=== PATIENT | male | born 1990 | race Two or more races ===

== ENCOUNTER 2024-06-25 05:26 | Emergency (ER) | payer MEDICAID, SELFPAY ==
[2024-06-25 05:27] VITALS: BMI 33.4
[2024-06-25 05:35] VITALS: BP 129/81; PULSE 89; RESP 16; TEMP 36.6; O2SAT 98
[2024-06-25] MEDS: FLUORESCEIN SOD 1 MG STRP RIGHT EYE (06:51)
[2024-06-25] MEDS: TETRACAINE PF OP SOL 0.5% 4 ML DRPETTE 1 DROP RIGHT EYE (06:51)
--- NOTE | 2024-06-25 07:07 | EDNOTE_ITS ---
<Statement entered by Sonia Verma MD - 06/26/24 14:30> As co-signing physician, I was present and available for consult prn. I concur with the plan and care as documented by the midlevel provider. ED Eye Problem RME/HPI General Chief complaint: Eye Problems Stated complaint: RT EYE PAIN Time Seen by Provider: 06/25/24 06:16 Arrival date/time: 06/25/24 05:26 34-year-old male presents to the Emergency Department today send he was doing some yard work yesterday and got some debris in his right eye patient reports since then has had ear irrigation and pain. Patient reports no disturbances in vision but reports the light bothers his eye as well as pain Limitations: no limitations Related Data Previous Rx's ?Medication ?Instructions ?Recorded ibuprofen 800 mg tablet 800 mg PO TID PRN pain #30 t abs 06/25/24 tobramycin 0.3 % eye drops 2 drp ophthalmic (eye) Q4H 5 days 06/25/24 #5 mL Allergies Allergy/AdvReac Type Severity Reaction Status Date / Time No Known Allergies Allergy Verified 06/25/24 05:30 Review of Systems Review of Systems Systems Reviewed: All systems reviewed, normal except as documented Constitutional Constitutional: Reports system reviewed and no additional complaints, except as documented, Denies fever(s) and Denies headache(s) Eyes Eyes: Reports system reviewed and no additional complaints, except as documented, Denies blurry vision, Denies change in vision, Reports eye discharge, Reports irritation, Denies loss of vision, Denies other visual disturbances, Reports eye pain and Reports photophobia ENT Ears, Nose, Mouth, and Throat: Reports system reviewed and no additional complaints, except as documented, Denies headache(s), Denies nasal congestion and Denies nasal discharge Cardiovascular Cardiovascular: Reports system reviewed and no additional complaints, except as documented, Denies chest pain and Denies dyspnea Respiratory Respiratory: Reports system reviewed and no additional complaints, except as documented, Denies chest congestion, Denies cough and Denies dyspnea Gastrointestinal Gastrointestinal: Reports system reviewed and no additional complaints, except as documented and Denies abdominal pain Integumentary/Breasts Skin/Breast: Reports system reviewed and no additional complaints, except as documented and Denies rash Neurologic Neurologic: Reports system reviewed and no additional complaints, except as documented, Reports as per HPI, Denies headache(s) and Denies loss of vision Past Medical History Social History SMOKING STATUS: Current some day smoker ED Exam General Limitations: Present no limitations General appearance: Present alert and in no apparent distress Head Head exam: Present atraumatic, normocephalic and normal inspection Eye Eye exam: Present PERRL, EOMI, conjunctival injection and other (No hyphema); Absent scleral icterus, nystagmus, miosis, periorbital swelling or periorbital tenderness ENT ENT exam: Present normal exam, normal oropharynx and mucous membranes moist Neck Neck exam: Present normal inspection, full ROM and trachea midline Chest Chest inspection: Present normal inspection and symmetric chest wall rise Respiratory Respiratory exam: Present normal lung sounds bilaterally Cardiovascular Cardiovascular exam: Present regular rate, normal rhythm and normal heart sounds Abdominal Exam Abdominal exam: Present soft and normal bowel sounds Extremities Exam Extremities exam: Present normal inspection and full ROM Back Exam Back exam: Present normal inspection and full ROM Neurological Exam Neurological exam: Present alert, oriented X3 and CN II-XII intact Psychiatric Psychiatric exam: Present normal affect and normal mood Skin Skin exam: Present warm, dry, intact and normal color Course Quality Measures none Orders Category Date Time Status ED Eye Irrigation ONCE Care 06/25/24 06:21 Active Perdomo Lamp to Bedside X1 Care 06/25/24 06:21 Active Fluorescein Sodium [[id number]] Med 06/25/24 06:21 Discontinued 1 mg RIGHT EYE X1 ONE TETRACAINE Op Gabrielle 0.5% [Pontocaine Op Gabrielle 0.5%] Med 06/25/24 06:21 Discontinued 1 drop RIGHT EYE X1 ONE Vital Signs Vital signs: Vital Signs Temperature 97.9 F 06/25/24 05:35 Pulse Rate 89 06/25/24 05:35 Respiratory Rate 16 06/25/24 05:35 Blood Pressure 129/81 06/25/24 05:35 Pulse Oximetry (%) 98 06/25/24 05:35 Oxygen Delivery Method Room Air 06/25/24 05:35 O2 saturation 98% room air within normal limits Procedures -ED Perdomo Lamp Exam Right eye: Flourescein uptake:: Yes Perdomo Lamp Findings: Corneal abrasion Eye MDM Narrative MDM Narrative:: 34-year-old male presents to the Emergency Department today send he was doing some yard work yesterday and got some debris in his right eye patient reports since then has had ear irrigation and pain. Patient reports no disturbances in vision but reports the light bothers his eye as well as pain On exam patient has conjunctival injection of the right eye no hyphema no periorbital cellulitis patient does have small chronic abrasion at the 3 o'clock position Perdomo lamp exam performed, I irrigated with 500 mL of normal saline using a Felton lens patient discharge home with antibiotics Patient instructed to follow-up with eye doctor today and for any disturbances of vision he must return immediately for further evaluation patient states understanding Patient data External records reviewed:: [facility] previous records Clinical information provided by:: patient Social determinants that could affect healthcare access:: none Patient has the following chronic illnesses:: None How is presenting disease/condition affected by chronic disease/condition?: no chronic disease Evaluation data The following diagnostics were reviewed and interpreted by me:: other (specify) Lab and/or radiology exams considered but not ordered:: Consider not ordered Interpretation Summary: N/A Medications / Prescriptions Medications or Prescriptions considered but not ordered:: Given Medication administrations:: Medication Administration History Discontinued Medications Fluorescein Sodium (Fluorescein Sod 1 Mg Strp) 1 mg RIGHT EYE X1 ONE Stop: 06/25/24 06:22 Last Admin: 06/25/24 06:51 Dose: 1 mg Documented By: JOSE GUADALUPE Tetracaine HCl (Tetracaine Pf Op Gabrielle 0.5% 4 Ml Drpette) 1 drop RIGHT EYE X1 ONE Stop: 06/25/24 06:22 Last Admin: 06/25/24 06:51 Dose: 1 drop Documented By: JOSE GUADALUPE Given Consultations Consultation(s) initiated? (list below): No Diagnosis Eye Problem Differential Diagnosis: corneal abrasion and corneal ulcer Most likely diagnosis given after review of the tests above:: Corneal abrasion Admission Indicated Admission indicated?: not indicated Admission Request Was there a request for admission?: No Disposition Plan Disposition Plan: Discharge Discharge Attestation Discharge Attestation: The patient and all family members were given an opportunity to ask questions and understood the discharge instructions. Discharge instructions specifically effects, indications for sooner follow up or return to the emergency department, and the expected course of current diagnosis. Patient condition: Stable Discharge Plan Plan Patient Disposition: HOME (Self Care) Disposition Comment: Stable Prescriptions/Referrals Prescriptions/Med Rec: New ibuprofen 800 mg tablet 800 mg PO TID PRN (Reason: pain) Qty: 30 0RF tobramycin 0.3 % drops 2 drp ophthalmic (eye) Q4H 5 Days Qty: 5 0RF Referrals: Wander Lim DO [Referring Provider] - 06/25/24 Problem List Clinical Impression: Corneal abrasion Patient/Caregiver Discharge Instructions Education Materials: Corneal Injury Additional Instructions: Please follow-up with eye doctor today inform them that you were seen in the emergency department and you were referred to him for further evaluation today Print Language: Portuguese Stand Alone Forms: Maritza Award Info., Patient Portal Info Letter PA/[employer] WORK[employer] Supervising Physician PA/[employer] WORK[employer] Supervising Physician: Dr. VERMA
== END 2024-06-25 07:15 | disposition home or self-care (01) ==
LOC: SERX 07:32
PROVIDERS: Emergency Provider Emergency Medicine
DX: S05.01XA Injury of conjunctiva and corneal abrasion without foreign body, right eye, initial encounter (principal); X58.XXXA Exposure to other specified factors, initial encounter; Y93.H2 Activity, gardening and landscaping; Y92.096 Garden or yard of other non-institutional residence as the place of occurrence of the external cause
CPT/HCPCS: 99283